=== PATIENT | female | born 1955 | race Caucasian/White ===

== ENCOUNTER → 2024-02-20 08:37 | Outpatient (BNVA) | payer MEDICARE, SELFPAY | PROVIDERS: PCP Nurse Practitioner Family; Visit Provider Nurse Practitioner Family | DX: D72.829 Elevated white blood cell count, unspecified (principal); R53.83 Other fatigue; R73.9 Hyperglycemia, unspecified; L25.5 Unspecified contact dermatitis due to plants, except food | CPT/HCPCS: 80053; 83036; 84443; 85007; 85027; 86140 ==